=== PATIENT | female | born 1985 | race Caucasian/White ===

== ENCOUNTER 2018-05-08 02:32 | Inpatient (IN) | payer BC, MEDICAID ==
--- NOTE | 2018-05-08 05:16 | PN ---
L&D Outpatient: Visit - Reproductive Information Estimated Due Date: 05/12/18 Gestational Age: 39 Weeks and 3 Days : 2 Para: 1 - Reason for Visit Visit Reason: Labor check - Antepartal Records Antepartal Record: Reviewed, Uncomplicated - Patient History Patient History Significant: No Review of Systems Constitutional: Uncomfortable - with contractions CV Complaint: No Respiratory: Shortness of Breath: No Gastrointestinal: No Nausea/Vomiting, Normal Bowel Movement Genitourinary: No Dysuria, No Bleeding, No Leaking Fluid Musculoskeletal: No Epigastric Pain, Contractions Neurological: No Headache, No Visual Changes Movement: Normal L&D Outpatient: Exam Vitals - Most Recent: Admission vitals: 130/85, HR 62, O2 99% - Cervical Exam Cervical Exam: Initial exam: 350/-1; recheck in 2 hours 3.5/50/-1 - Abdominal Exam Abdomen Exam: Non-Tender, Fundal Height Consistent with Dates - Membranes Membrane Status: Intact - Ultrasound/Biophysical Profile Ultrasound Status: Not Done EFM Findings - External Monitor Findings Baseline Heart Rate: 120 External Monitor Findings: Accelerations Present, No Pattern of Variable or Late Decelerations, Variability Moderate Contractions: Irregular, 45-90 Seconds - q2-6 minutes L&D Outpatient: Asses/Plan Assessment: IUP@39+3 early labor vs. false labor GBS+ Category I FHT, no evidence of metabolic acidemia Contractions palpate moderate to strong - Discharge Diagnosis Discharge Diagnosis: Supervision-Normal Preg, Intact Membranes Plan: Continue Observation - Therapeutic rest w/nubain/phenergan; recheck cervix in AM; discharge to home vs admit for labor augmentation
[2018-05-08] MEDS ORDERED: Nalbuphine* 10 MG/ML 1 ML VIAL IM PRN (05:17)
[2018-05-08] MEDS ORDERED: Promethazine INJ(RESTRICTED)* 25 MG/ML 1 ML VIAL IM PRN (05:17)
[2018-05-08] MEDS ORDERED: Buffered Lidocaine 1% SYRIN* 1 ML/SYRINGE INTRADERM ONE (10:38)
[2018-05-08] MEDS ORDERED: Lactated Ringers 1000 ML Bag* 1,000 ML IV ONE ×2 (10:38→18:02)
--- NOTE | 2018-05-08 10:49 | HP ---
General Information - Reason for Visit Pt reports ctx starting last night at 2030, increasing over time, have now decreased in frequency but continue to be strong per pt. - General Information Maternal Age: 33 Grav: 3 Para: 1 SAB: 0 IEA: 0 Estimated Due Date: 05/12/18 Determined By: LMP Maternal Blood Type and Rh: A Positive - Results this Serology/RPR Result: Non-Reactive Rubella Result: Immune HBsAg Result: Negative HIV Result: Negative GBS Culture Result: Positive Past Medical History Delivery History: Hx Complicated Vaginal Delivery - 1st delivery had a partial 3rd degree Pertinent Past Medical History: Non-Contributory Pertinent Past Surgical History: See Records - Tonsillectomy and adenoidectomy Pertinent Family History: Non-Contributory - Antepartal Records Antepartal Records: Reviewed, Uncomplicated Review of Systems Constitutional: Comfortable CV Complaint: No Respiratory: Shortness of Breath: No Gastrointestinal: No Nausea/Vomiting Genitourinary: No Dysuria, No Bleeding, No Leaking Fluid Musculoskeletal: No Epigastric Pain, Contractions Neurological: No Headache, No Visual Changes Movement: Normal Exam Allergies/Adverse Reactions: Allergies No Known Allergies Allergy (Verified 05/08/18 03:13) T-99.0, P-72 bpm, R-20/min, BP-126/74 - Measurements Height: 5 ft 4 in Weight: 70.307 kg Weight in lbs: 155.590179 Body Mass Index (BMI): 26.6 Pre- Weight: 53.524 kg Weight Gained This : 37 lbs and 0 ozs - Exam Breast: Breast Exam Deferred CVA: No CVA Tenderness Extremities: No Edema Heart: Normal Rhythm/Heart Sounds HEENT: No Significant Findings Lungs: Clear Bilaterally Rectal: Rectal Exam Deferred Reflexes: DTR 2+ Thyroid: No Thyromegaly - Abdominal Exam Abdomen Exam: Non-Tender, Fundal Height Consistent with Dates - Ultrasound/Biophysical Profile Ultrasound Status: Not Done Targeted Exam Findings See L&D Outpatient Visit Provider Note for Findings: Yes Estimated Weight: 8# Cervical Exam: 4cm Effacement: 80% Station: 0 Presenting Part: Vertex Membrane Status: Intact Bleeding/Discharge: None EFM Findings - External Monitor Findings Baseline Heart Rate: 125 External Monitor Findings: No Pattern of Variable or Late Decelerations, Variability Moderate, Baseline Stable, Accelerations Absent Contractions: Irregular, Moderate, 45-90 Seconds Contraction Frequency: 7-9 minutes Assessment/Plan - Assessment 33 year old at 39 3/7 weeks gestation in early labor, GBS positive with intact membranes, no evidence of acidemia. - Obstetrical Risk Factors Obstetrical Risk Factors: GBS Positive - Plan Plan: Admit - Anticipate Vaginal Delivery Plan Comment: Discussed options with pt, including discharge home to await active labor; admitting and managing expectantly, as she has made some cervical change despite ctx spacing out; and initiating augmentation with Pitocin. After discussing pros and cons of each approach, pt prefers to initiate augmentation. Will start IV, initiate low dose Pitocin and initiate GBS prophylaxis. - Date/Time of Admission Date of Admission: 05/08/18 Time of Admission: 10:30
[2018-05-08] MEDS ORDERED: Penicillin G Potassium IV* 5,000,000 UNITS in NS 0.9% 100 ML* 100 ML IVPB ONE (10:55)
[2018-05-08] MEDS ORDERED: Oxytocin in LR* 20 UNITS/1,000 ML BAG IVPB SCH ×2 (11:00→19:00)
[2018-05-08] MEDS ORDERED: Lactated Ringers 1000 ML Bag* 1,000 ML IV SCH ×3 (11:00→19:00)
[2018-05-08] MEDS ORDERED: Oxytocin in LR* 20 UNITS/1,000 ML BAG IVPB ONE (11:18)
[2018-05-08 11:27] LABS: ABS Basophils 0 10^3/ul (0-0.2); ABS Eosinophils 0 10^3/ul (0-0.6); ABS Lymphocytes 1.3 10^3/ul (1.0-4.8); ABS Monocytes 0.7 10^3/ul (0-0.8); ABS Neutrophils 7.4 10^3/ul (1.5-7.7); ABS Nucleated RBC 0 10^3/ul; Eosinophil % 0.4 %; Hematocrit 35 % (35-47); Hemoglobin 11.7 g/dl (12.0-16.0); Lymphocyte % 13.8 %; Mean Corpuscular HGB Conc 33 g/dl (31-36); Mean Corpuscular Hemoglobin 30 pg (27-31); Mean Corpuscular Volume 91 fL (80-97); Mean Platelet Volume 9.5 fL (7.4-10.4); Nucleated Red Blood Cells % 0.1; Platelet Count 124 10^3/ul (150-450); Red Blood Count 3.87 10^6/ul (4.00-5.40); Red Cell Distribution Width 16 % (10.5-15); White Blood Count 9.4 10^3/ul (3.5-10.8)
--- NOTE | 2018-05-08 14:02 | PN ---
Progress Note - Progress Note Date of Service: 05/08/18 SOAP: Subjective: Pt feeling ctx, uncomfortable with them but coping well. Reports active FM. at bedside, supportive. Objective: Pitocin at 10 mu FHR baseline 125/ moderate variability/ + accels, no decels UCs Q 5 minutes Cervical exam deferred Has had first dose of PCN Assessment: 33 year old at 31 weeks undergoing augmentation of labor, labor appears to be becoming more active. No evidence of acidemia, membranes intact. Plan: Continue Pitocin augmentation. Labor support and comfort measures. Epidural if requested. Continue GBS prophylaxis.
[2018-05-08] MEDS ORDERED: Penicillin G Potassium IV* 2,500,000 UNITS in NS 0.9% 100 ML* 100 ML IVPB SCH (15:00)
[2018-05-08] MEDS ORDERED: OBEPIDURAL* 250 ML EPIDURAL ONE (16:36)
--- NOTE | 2018-05-08 16:45 | PN ---
Progress Note - Progress Note Date of Service: 05/08/18 SOAP: Subjective: Pt reports ctx stronger, more intense. Pt requests labor epidural. Objective: Cervix: 5-6 cm/ 100%/ -1/ vtx FHR:130/ moderate variability/ + accels/ difficulty tracing baby due to maternal position UCs:2-3 minutes Membranes intact Assessment: Pt in active labor, requesting epidural. No evidence of acidemia. Anesthesiologist notified. Plan: Pitocin off, pending epidural. Will restart PRN. Epidural for pain relief. Anticipate .
[2018-05-08] MEDS ORDERED: Famotidine TAB* 20 MG PO PRN (18:02)
[2018-05-08] MEDS ORDERED: Phenylephrine IV* 40 MCG/ML 10 ML SYRINGE IV PUSH PRN ×2 (18:02)
[2018-05-08] MEDS ORDERED: Sodium Citrate/Citric Acid* 15 ML UDC PO PRN (18:02)
[2018-05-08] MEDS ORDERED: Witch Hazel PAD* JAR TOPICAL PRN (18:13)
[2018-05-08] MEDS ORDERED: Dibucaine 1% 28.35 GM TUBE PR PRN (18:13)
[2018-05-08] MEDS ORDERED: Glycerin ADULT SUPP PR PRN (18:13)
[2018-05-08] MEDS ORDERED: Acetaminophen TAB* 325 MG PO PRN (18:13)
[2018-05-08] MEDS ORDERED: OBEPIDURAL* 250 ML EPIDURAL SCH (19:00)
[2018-05-08] MEDS ORDERED: Ammonia Inhalant* 1 EA AMP ONE (20:09)
[2018-05-08] MEDS: Ibuprofen TAB* 600 MG PO PRN (20:10)
--- NOTE | 2018-05-08 21:30 | PROCNOTE ---
[facility] OB: Delivery Note - Delivery A Date of : 05/08/18 Time of : 17:13 [place] Sex: Female Weight at : 3.905 kg Score 1 Minute: 8 Score 5 Minutes: 9 Gestational Age in Weeks and Days at Delivery: 39 Weeks and 3 Days Delivery Method: Spontaneous Vaginal Labor: Spontaneous Did Patient attempt ?: N/A, No Previous Amniotic Fluid: Clear Estimated Blood Loss: 400 Anesthesia/Analgesia: CEI for Labor Anesthesia Comment: epidural only minutes before delivery Delivered By: Loulou Patel - Nursery Level of Nursery: Regular/Bedside - Perineum Perineal Injury: 1st Degree Perineal Repair: By Delivering Practioner - Events Delivery Events of Note: Pitocin During Labor, Full Course of Antibiotics - Additional Delivery Notes Additional Delivery Notes: Pt arrived on Labor and Delivery in early labor, received therapeutic rest with Nubain and Phenergan and slept. Despite ctx spacing out she made a small amount of cervical change. Pt offered the option to discharge home to await active labor, to be admitted and manage expectantly, or to be admitted and augment labor with Pitocin. Pt elected to augment, so antibiotic prophylaxis and Pitocin augmentation were initiated. Pt progressed steadily and requested an epidural. While epidural being placed pt began to feel urge to push. As soon as epidural process was complete and prior to lying back in bed, pt's water broke, fluid clear, and pt began to push involuntarily. Pt assisted to lie down in bed and with the next push top of infant's head was visible. Pt quickly brought the to and was coached through slow, controlled delivery of the head. Tight nuchal cord observed, but able to deliver infant's body and then reduce cord before placing on maternal abdomen where she was stimulated and dried and gave a vigorous cry, HR>100. Cord clamped x2 after pulsation ceased and cut by infant's father. Placenta soon delivered, spontaneous and sam and Pitocin increased to 250 cc/hr. Initial bleeding was brisk, but slowed and then ceased with fundal massage and IV Pitocin. Inspection of the perineum revealed small first degree laceration, repaired with dissolvable suture, with good tissue approximation and hemostasis. Also noted small, nickel- sized hematoma on left side of introitus. Pressure applied and when rechecked hematoma had not increased in size. Pt and stable at this time, anticipate normal course.
[2018-05-08] MEDS: Docusate CAP* 100 MG PO SCH (22:09)
[2018-05-09] MEDS: Ibuprofen TAB* 600 MG PO PRN ×4 (02:39→21:26)
[2018-05-09 07:21] LABS: ABS Basophils 0 10^3/ul (0-0.2); ABS Eosinophils 0 10^3/ul (0-0.6); ABS Lymphocytes 1.1 10^3/ul (1.0-4.8); ABS Monocytes 0.7 10^3/ul (0-0.8); ABS Neutrophils 6.6 10^3/ul (1.5-7.7); ABS Nucleated RBC 0 10^3/ul; Eosinophil % 0.5 %; Hematocrit 27 % (35-47); Hemoglobin 9.4 g/dl (12.0-16.0); Lymphocyte % 13.1 %; Mean Corpuscular HGB Conc 34 g/dl (31-36); Mean Corpuscular Hemoglobin 31 pg (27-31); Mean Corpuscular Volume 91 fL (80-97); Nucleated Red Blood Cells % 0.1; Red Cell Distribution Width 15 % (10.5-15); White Blood Count 8.4 10^3/ul (3.5-10.8)
[2018-05-09 08:03] LABS: Mean Platelet Volume 8.8 fL (7.4-10.4); Platelet Count 92 10^3/ul (150-450)
[2018-05-09] MEDS: Docusate CAP* 100 MG PO SCH ×3 (08:38→21:25)
[2018-05-09] MEDS: Ferrous Gluconate TAB* 324 MG TAB PO SCH ×2 (08:38→21:25)
[2018-05-10] MEDS: Ferrous Gluconate TAB* 324 MG TAB PO SCH (08:34)
[2018-05-10] MEDS: Docusate CAP* 100 MG PO SCH ×2 (08:34→13:10)
[2018-05-10 16:28] VITALS: BP 111/66
== END 2018-05-10 17:40 | disposition home or self-care (01) | DRG 560 ==
LOC: MCHOBOUT 02:32 → MCHOB 10:31
PROVIDERS: ADMIT Midwife; ATTEND Advanced Practice Midwife
PROC: 10E0XZZ Delivery of Products of Conception, External Approach (ICD-10-PCS; principal; 2018-05-08)
PROC: 4A1HXCZ Monitoring of Products of Conception, Cardiac Rate, External Approach (ICD-10-PCS; 2018-05-08)
PROC: 0HQ9XZZ Repair Perineum Skin, External Approach (ICD-10-PCS; 2018-05-08)
DX: O69.1XX0 Labor and delivery complicated by cord around neck, with compression, not applicable or unspecified (principal); O71.7 Obstetric hematoma of pelvis; Z37.0 Single live birth; O99.824 Streptococcus B carrier state complicating childbirth; Z3A.39 39 weeks gestation of pregnancy; O70.0 First degree perineal laceration during delivery; O90.81 Anemia of the puerperium
CPT/HCPCS: 36415; 85025; 86850; 86900; 86901; A9270-GY; J2300; J2540; J2550